=== PATIENT | female | born 1980 | race Caucasian/White ===

== ENCOUNTER 2017-11-29 12:10 | Emergency (ER) | payer OTHER ==
[2017-11-29 12:37] VITALS: BP 111/70; PULSE 82; RESP 17; TEMP 98.7; O2SAT 98; BMI 23.0
--- NOTE | 2017-11-29 13:01 | RAD ---
PROCEDURE: Right Hand Radiographs. HISTORY: Right hand pain after banging on desk COMPARISON: None. FINDINGS: BONES: No evidence of acute displaced fracture nor dislocation. The osseous structures intact. . JOINTS: No significant osteoarthritic changes. SOFT TISSUES: Normal. OTHER FINDINGS: None. IMPRESSION: No evidence of acute displaced fracture nor dislocation. If symptoms persist or occult fracture suspected clinically recommend repeat radiographs 5-10 days as most fractures should become radiographically evident this time
--- NOTE | 2017-11-29 13:15 | C.PDOC ---
History Of Present Illness 37 year old female presents to the ED for evaluation of right hand injury sustained today. Patient states she accidentally banged her right hand into wooden desk prior to arrival, and it is not painful and she has swelling at the dorsum of hand. She denies any other injuries, sensory changes, weakness. Time Seen by Provider: 11/29/17 12:10 Chief Complaint (Nursing): Finger,Hand,&Wrist History Per: Patient History/Exam Limitations: no limitations Onset/Duration Of Symptoms: Hrs Current Symptoms Are (Timing): Still Present Severity: Mild Past Medical History Reviewed: Historical Data, Nursing Documentation, Vital Signs Vital Signs: Last Vital Signs Temp 98.7 F 11/29/17 12:22 Pulse 82 11/29/17 12:22 Resp 17 11/29/17 12:22 BP 111/70 11/29/17 12:22 Pulse Ox 98 11/29/17 13:58 - Medical History PMH: No Chronic Diseases Surgical History: Family History: States: No Known Family Hx - Social History Hx Tobacco Use: No Hx Alcohol Use: No Hx Substance Use: No - Immunization History Hx Tetanus Toxoid Vaccination: No Hx Influenza Vaccination: No Review Of Systems Constitutional: Negative for: Chills Musculoskeletal: Positive for: Hand Pain (right) Skin: Negative for: Rash Neurological: Negative for: Weakness, Numbness Physical Exam - Physical Exam Appears: Well, Non-toxic, No Acute Distress Skin: Normal Color, Warm, Dry, No Rash Oral Mucosa: Moist Neck: Normal ROM, Supple Cardiovascular: Rhythm Regular Respiratory: Normal Breath Sounds, No Rales, No Rhonchi, No Wheezing Extremity: Normal ROM (with intact ROM of all digits and good flexion/extension at bilateral wrists), Tenderness (mild TTP and swelling over dorsum right hand, 3/4 metcarpal area), Capillary Refill (< 2 sec all digits), No Deformity, Swelling, Other ((-) warmth or erythema) Extremity: Bilateral: Normal ROM Pulses: Left Radial: Normal, Right Radial: Normal Neurological/Psych: Oriented x3, Normal Sensation ED Course And Treatment O2 Sat by Pulse Oximetry: 98 (RA) Pulse Ox Interpretation: Normal - Other Rad X-ray right hand X-Ray: Read By Radiologist Interpretation: No evidence of acute displaced fracture nor dislocation. Progress Note: X-rays of right hand ordered and reviewed. Patient given PO tylenol for pain. Xrays neg for acute fx/dislocation/bony injury. Patient requesting uriel wrap - given and applied by echocardiograph tech. Patient instructed to follow up with PMD/clinic in 1-2 days, and understands she should return to ED if symptoms worsen. Reevaluation Time: 13:15 Reassessment Condition: Improved Disposition Counseled Patient/Family Regarding: Studies Performed, Diagnosis, Need For Followup - Disposition Referrals: [facility] [Outside] Disposition: HOME/ ROUTINE Disposition Time: 13:15 Condition: STABLE Additional Instructions: FOLLOW UP WITH YOUR DOCTOR IN 1-2 DAYS USE PAIN MEDICATION NEEDED RETURN TO ER IF SYMPTOMS WORSEN Prescriptions: Naproxen 375 mg PO BID PRN #20 tablet PRN Reason: pain Instructions: Contusion (DC) Forms: [employer] (Togolese) Print Language: BANGLADESHI - POA Present On Arrival: Falls Or Trauma - Clinical Impression Clinical Impression: Contusion of right hand - Scribe Statement The provider has reviewed the documentation as recorded by the Scribe (Lisha Alanis) Provider Attestation: All medical record entries made by the Scribe were at my direction and personally dictated by me. I have reviewed the chart and agree that the record accurately reflects my personal performance of the history, physical exam, medical decision making, and the department course for this patient. I have also personally directed, reviewed, and agree with the discharge instructions and disposition.
== END 2017-11-29 13:15 | disposition home or self-care (01) ==
LOC: C.ER 12:10
DX: S60.221A Contusion of right hand, initial encounter (principal); W22.8XXA Striking against or struck by other objects, initial encounter